=== PATIENT | female | born 2000 ===

== ENCOUNTER 2024-03-17 16:39 | Outpatient (REF) | payer SELFPAY ==
--- NOTE | 2024-03-17 14:00 | PAPFT_PTH ---
PATIENT: Cristy Prater [facility] U#:[id number] AGE/SX: 23/F ROOM: RE03/17/[address]: SAMSON: 2000 BED: DIS: 03/17/2024 SPEC #: [id number] RECD: 03/18/24 13:11 STATUS: [facility] [place] #: [id number] ABRIL: 03/17/24 14:[address]: Mary James DEPT: [facility] Cytology RECD BY: Latha Enrique ENTERED: 03/18/24 13:11 SP TYPE: PAPFT DIOMEDES DR: Unknown,Unknown Tissues: 1 - CX/ENDOCX FOR PAP SMEARS Procedures: PAP THIN PREP/[facility] Screening HPV DNA PROBE Comments: [id number]
== END 2024-03-17 16:40 | disposition home or self-care (01) ==
LOC: NCHCN 16:39
PROVIDERS: Visit Provider Family Medicine
DX: Z00.00 Encounter for general adult medical examination without abnormal findings (principal); Z12.4 Encounter for screening for malignant neoplasm of cervix; R87.610 Atypical squamous cells of undetermined significance on cytologic smear of cervix (ASC-US)
CPT/HCPCS: 88142; 87624